=== PATIENT | female | born 1975 | race Hispanic/Latino ===

== ENCOUNTER 2024-03-28 17:49 | Emergency (ER) | payer MEDICARE ==
[~2024-03-28] VITALS: Ht 160 cm; Wt 94.8 kg
[2024-03-28 18:00] VITALS: PULSE 101; RESP 18; TEMP 98.7
[2024-03-28 20:15] VITALS: BP 137/78; PULSE 101; RESP 20; O2SAT 100
== END 2024-03-28 20:15 | disposition home or self-care (01) ==
LOC: FSED 17:53
DX: R68.83 Chills (without fever) (principal); B34.9 Viral infection, unspecified; K21.9 Gastro-esophageal reflux disease without esophagitis; Z85.3 Personal history of malignant neoplasm of breast
CPT/HCPCS: 99283